=== PATIENT | male | born 1980 | race Caucasian/White ===

== ENCOUNTER 2023-09-06 07:16 | Emergency (ER) | payer OTHER, SELFPAY ==
[2023-09-06 07:24] VITALS: BP 147/82; PULSE 104; O2SAT 98
[2023-09-06 07:28] VITALS: BP 177/82; PULSE 105; RESP 21; TEMP 36.5; O2SAT 98; BMI 28.7
--- NOTE | 2023-09-06 08:05 | ED_ITS ---
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 He has had multiple MRIs in his where disc bulging, facet abnormalities he has been recommended to have a intrathecal device to help with pain control and he is declined this. Typically he is able to manage symptoms with gentle stretching, Naprosyn, biofeedback and occasional edible. He describes rolling over in bed 4 nights ago with acute onset of right low back pain with radicular symptoms. He does not describe significant injury prior to this. He has not on blood thinners, no prior history of cancer, no difficulty bowel or bladder function. He states that this feels like his usual back pain in terms of location however severity is more intense. He is hoping for help with pain control. He notes that he does radicular pain down the thigh to the knee. He has decreased sensation to the lower extremity but is able to still feel touch and vibratory sense. He states this is his baseline it is not secondary to his current issue. Denies any abdominal pain, dyspnea, palpitations, nausea, vomiting, constipation. Related Data Previous Rx's Medication Instructions Recorded dexamethasone 4 mg tablet 10 mg (2.5 x 4 mg) PO DAILY #5 tabs 09/06/23 oxycodone-acetaminophen 5 mg-325 1 tab PO Q6H PRN pain #12 tabs 09/06/23 mg tablet Allergies Allergy/AdvReac Type Severity Reaction Status Date / Time Sulfa (Sulfonamide Allergy Severe Anaphylaxis Verified 09/06/23 08:32 Antibiotics) Review of Systems Review of Systems Narrative: Pertinent positive and negative findings as per HPI Patient History Medical History (Updated 09/06/23 @ 09:57 by Hodan Croft MD) Chronic back pain Social History Smoking Status: Current every day smoker Smoking Status: Current every day smoker tobacco type: cigarettes alcohol intake frequency: a few times a month Substance Use Type: marijuana Exam Initial Vital Signs Initial Vital Signs: Vital Signs Pulse Rate 104 H 09/06/23 07:24 Blood Pressure 147/82 H 09/06/23 07:24 Pulse Oximetry 98 09/06/23 07:24 General: Healthy appearing, in moderate distress. Able to give a complete and coherent history. Well-nourished well-developed HEENT: Moist mucous membranes, normal sclera with reactive pupils, Respiratory: Lungs are clear to auscultation, no wheezing no rales no rhonchi. Full and symmetrical air movement Cardiac: Regular rate and rhythm no murmurs no bruits Abdomen: Soft, nontender, good bowel tones, no flank pain Skin: Warm and dry, no rashes Spine: He is some tenderness and paraspinous spasm lower lumbar area to the sacrum with some minor tenderness without skin changes, concern for infection. Neurologic: He is able to move all extremities, decreased peripheral sensation in the right lower extremity and significant pain with straight leg raising. With pain he is able to get up and walk to the bathroom Extremities: No trauma, well perfused Psych: Cooperative, appropriate insight and affect Course Orders Ordered: Discontinued Medications Dexamethasone (Dexamethasone 10 Mg/Ml Vial) 10 mg IV NOW ONE Stop: 09/06/23 08:19 Last Admin: 09/06/23 08:32 Dose: 10 mg Documented By: HUGO Hydromorphone HCl (Hydromorphone 0.5 Mg Inj) 0.5 mg IV NOW ONE Stop: 09/06/23 08:19 Last Admin: 09/06/23 08:33 Dose: 0.5 mg Documented By: HUGO Ketorolac Tromethamine (Ketorolac 30 Mg/Ml Vial) 15 mg IV NOW ONE Stop: 09/06/23 08:19 Last Admin: 09/06/23 08:33 Dose: 15 mg Documented By: HUGO Vital Signs Vital signs: Vital Signs - 8 hr 09/06/23 07:24 09/06/23 07:24 09/06/23 07:28 Temperature 97.7 F Pulse Rate 104 H 105 H Respiratory Rate 21 Blood Pressure 147/82 H 177/82 H Pulse Oximetry 98 98 Oxygen Delivery Method Room Air 09/06/23 08:25 09/06/23 08:30 09/06/23 09:00 Temperature Pulse Rate 77 76 71 Respiratory Rate Blood Pressure Pulse Oximetry 100 100 100 Oxygen Delivery Method MDM - Back Pain/Injury MDM Narrative Medical decision making narrative: 43-year-old gentleman with chronic back pain and acute exacerbation. Four days and getting progressively worse comes in for further evaluation At home has been using Naprosyn and Tylenol. In the past he has done physical therapy but has not done so for at least 2 years and is interested in reconside ring this. Imaging studies: Patient has no red flags to suggest that imaging with today's visit is going to be of any benefit On exam there is no specific midline tenderness or fullness to suggest epidural abscess or diskitis. He does have positive straight leg test on the right side and decreased sensation in the right leg. He does not have a footdrop and still is able to walk with the assistance He is treated with IV Toradol, dexamethasone and half a mg of Dilaudid. With this combination he is able to get up and be more mobile. Still having pain but feels that discharge home would be appropriate. Discharge medications include dexamethasone 10 mg orally for the next 2 days, total of 12 tablets of oxycodone, discussion regarding appropriate ibuprofen Tylenol dosing. [facility] for maximizing treatment of his chronic back pain. Questions are answered and he is safe for discharge Discharge Plan Departure Patient Disposition: Home Clinical Impression: Acute bilateral low back pain with right-sided sciatica Instructions: DI for Sciatica Activity Restrictions/Additional Instructions: Thank you for coming in today In the emergency department you were given Toradol, dexamethasone and half a mg of hydromorphone for pain control. This combination was effective for you You do not have any ?red flags? with your back pain to suggest that we need to do additional imaging studies or blood work. Using 400 mg of ibuprofen (2 [id number] pills) and 1 Tylenol every 6 hours can be very helpful in controlling pain. For severe pain using 1 Percocet with the ibuprofen can be helpful. Percocet is a narcotic, has a addiction potential and will make you constipated. Please use sparingly and make sure you are all she will take a stool softener I am also going to give you 2 additional days of dexamethasone. Please take 2- 1/2 pills on the and on the . This helps with inflammation at the site and you will find that it truly begins to increase its effectiveness by the and beyond If you find that you are getting worse or develop any new symptoms, please feel free to return to the emergency department for further evaluation. Prescriptions: New oxycodone-acetaminophen 5-325 mg tablet 1 tab PO Q6H PRN (Reason: pain) Qty: 12 0RF dexamethasone 4 mg tablet 10 mg PO DAILY Qty: 5 0RF Stand Alone Forms: Patient Portal/API
[2023-09-06 08:25] VITALS: PULSE 77; O2SAT 100
[2023-09-06 08:30] VITALS: PULSE 76; O2SAT 100
[2023-09-06] MEDS: DEXAMETHASONE 10 MG/ML VIAL IV (08:32)
[2023-09-06] MEDS: KETOROLAC 30 MG/ML VIAL 15 MG IV (08:33)
[2023-09-06] MEDS: HYDROMORPHONE 0.5 MG INJ IV (08:33)
[2023-09-06 09:00] VITALS: PULSE 71; O2SAT 100
[2023-09-06 10:07] VITALS: BP 133/77; PULSE 75; RESP 18; O2SAT 97
== END 2023-09-06 10:08 | disposition home or self-care (01) ==
PROVIDERS: Emergency Provider Emergency Medicine
DX: M54.41 Lumbago with sciatica, right side (principal); G89.29 Other chronic pain
CPT/HCPCS: 36415; 96374; 96375; 99284; J1100; J1170; J1885

== ENCOUNTER 2023-10-30 05:51 | Emergency (ER) | payer OTHER, SELFPAY ==
[2023-10-30 05:59] VITALS: BP 102/68; PULSE 82; RESP 18; TEMP 36.4; O2SAT 99; BMI 28.2
--- NOTE | 2023-10-30 06:01 | ED.BACK ---
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 He has had multiple MRIs with disc bulging facet abnormalities. Patient reports that he has been seen by his primary care provider he is due to have repeat scheduling and [facility] but this is not yet scheduled. This morning he rolled over in bed and felt sharp stabbing right-sided back pain with tingling down his leg. This is been ongoing. He reports he can still tell when he has urges to use the restroom. But he reports that timing is close he has an urge to use the restroom and then he must go immediately. He reports that he has had increasing right leg weakness this has been ongoing for the last couple of months. No fever or chills. He has taken many medications without significant relief. He reports NSAIDs no historically work but he is agreeable to a Toradol shot. Related Data Previous Rx's Medication Instructions Recorded dexamethasone 4 mg tablet 10 mg (2.5 x 4 mg) PO DAILY #5 tabs 09/06/23 oxycodone-acetaminophen 5 mg-325 1 tab PO Q6H PRN pain #12 tabs 09/06/23 mg tablet dexamethasone 4 mg tablet 10 mg (2.5 x 4 mg) PO DAILY #5 tabs 10/30/23 methocarbamol 750 mg tablet 1,500 mg (2 x 750 mg) PO Q8H PRN 10/30/23 muscle spasm #20 tabs Allergies Allergy/AdvReac Type Severity Reaction Status Date / Time Sulfa (Sulfonamide Allergy Severe Anaphylaxis Verified 09/06/23 08:32 Antibiotics) Patient History Medical History (Updated 10/30/23 @ 06:14 by Tiffany Lauren DO) Chronic back pain Social History Smoking Status: Current every day smoker Smoking Status: Current every day smoker tobacco type: cigarettes alcohol intake frequency: a few times a month Substance Use Type: marijuana Exam Initial Vital Signs Initial Vital Signs: Vital Signs Temperature 97.6 F 10/30/23 05:59 Pulse Rate 82 10/30/23 05:59 Respiratory Rate 18 10/30/23 05:59 Blood Pressure 102/68 10/30/23 05:59 Pulse Oximetry 99 10/30/23 05:59 Oxygen Delivery Method Room Air 10/30/23 05:59 GENERAL: Well-appearing, well-nourished and in no acute distress. CARDIOVASCULAR: peripheral pulses in tact, cap refill <2 sec RESPIRATORY: No respiratory distress, speaks in full sentences without difficulty EXTREMITIES: Normal range of motion, no clubbing or edema. Neurovascularly intact BACK: Right lower lumbar pain reproducible to touch no vertebral tenderness. NEUROLOGICAL: Cranial nerves II through XII grossly intact. Normal gait and speech. Sensation in right leg is slightly diminished compared to left SKIN: Warm, dry, no petechiae, no rashes or lesions. Course Orders Ordered: Discontinued Medications Ketorolac Tromethamine (Ketorolac 30 Mg/Ml Vial) 30 mg IM NOW ONE Stop: 10/30/23 06:09 Last Admin: 10/30/23 06:16 Dose: 30 mg Documented By: Methocarbamol (Methocarbamol 500 Mg Tablet) 1,500 mg PO NOW ONE Stop: 10/30/23 06:09 Last Admin: 10/30/23 06:17 Dose: 1,500 mg Documented By: MDM - Back Pain/Injury MDM Narrative Medical decision making narrative: Patient 43-year-old male who presents today with acute chronic back pain. He has been seen by his primary care provider he is waiting on more imaging and surgery referral it sounds like. He has no evidence of cauda equina today. No specific midline tenderness or fullness to suggest epidural abscess or diskitis. He has had any sort of fever. He is able to ambulate. He is given Toradol here in the ED. He reports that whatever steroid he got last time which is dexamethasone seem to help him. We will give him methocarbamol he says that 1 sounds like it is familiar. Discharge Plan Departure Patient Disposition: Home Clinical Impression: Acute back pain with sciatica Instructions: DI for Back Strain or Sprain Activity Restrictions/Additional Instructions: *You have been diagnosed with back pain with sciatica *What to do: At this time I hope that you feel better. Continue stretches heating pad or whatever works for you. I would call your primary care provider and let them know that you are having a flare. *Continue to take medications as directed Dexamethasone 10 mg once a day for 2 days Methocarbamol 750 mg to 1500 mg every 8 hours if needed for muscle spasm *Follow up with your primary care provider in 2-3 days or call [phone] *Return to ER if you should have increasing leg weakness loss of urine or stool or any new, worsening or concerning symptoms Prescriptions: New dexamethasone 4 mg tablet 10 mg PO DAILY Qty: 5 0RF methocarbamol 750 mg tablet 1,500 mg PO Q8H PRN (Reason: muscle spasm) Qty: 20 0RF No Action oxycodone-acetaminophen 5-325 mg tablet 1 tab PO Q6H PRN (Reason: pain) Qty: 12 0RF dexamethasone 4 mg tablet 10 mg PO DAILY Qty: 5 0RF Stand Alone Forms: Patient Portal/API
[2023-10-30] MEDS: KETOROLAC 30 MG/ML VIAL IM (06:16)
[2023-10-30] MEDS: methocarbamoL 500 MG TABLET 1500 MG PO (06:17)
[2023-10-30 06:25] VITALS: BP 135/75; PULSE 84; RESP 22; TEMP 36.8; O2SAT 99
== END 2023-10-30 06:27 | disposition home or self-care (01) ==
PROVIDERS: Emergency Provider Emergency Medicine
DX: M54.41 Lumbago with sciatica, right side (principal)
CPT/HCPCS: 96372; 99283; J1885